=== PATIENT | male | born 1980 | race Caucasian/White ===

== ENCOUNTER 2017-05-05 20:13 | Emergency (ER) | payer SELFPAY ==
[~2017-05-05] VITALS: Ht 182.9 cm; Wt 86.2 kg
[2017-05-05 20:15] VITALS: BP_SYST 137
[2017-05-05 21:41] LABS: BARBITURATE, URINE NEGATIVE (NEG <=200); BENZODIAZEPINE, URINE NEGATIVE (NEG <=150); CANNABINOID, URINE NEGATIVE (NEG <=50); COCAINE, URINE NEGATIVE (NEG <=150); METHAMPHETAMINES SCREEN,URINE NEGATIVE (NEG <=500); OPIATE, URINE NEGATIVE (NEG <=100); PHENCYCLIDINE SCREEN,URINE NEGATIVE (NEG <=25); URINE AMPHETAMINE POSITIVE (NEG <=500); URINE METHADONE NEGATIVE (NEG <=200); URINE OXYCODONE SCREEN NEGATIVE (NEG <=100); URINE PROPOXYPHENE SCREEN NEGATIVE (NEG <=300)
[2017-05-05 21:42] LABS: UR TRICYCLIC ANTIDEPRESSANTS NEGATIVE (NEG <=300)
[2017-05-05] MEDS ORDERED: KETOROLAC TROMETHAMINE 60 MG/2 ML VIAL IM ONE (22:00)
[2017-05-05 22:29] VITALS: BP_SYST 137
== END 2017-05-05 22:29 | disposition home or self-care (01) ==
LOC: SED 20:13 → EDSEX 20:13 → SED 22:29
DX: S29.012A Strain of muscle and tendon of back wall of thorax, initial encounter (principal); F15.10 Other stimulant abuse, uncomplicated; W50.1XXA Accidental kick by another person, initial encounter; Y93.02 Activity, running; Y92.89 Other specified places as the place of occurrence of the external cause; Y99.8 Other external cause status
CPT/HCPCS: 80307; 96372; 99283; J1885